=== PATIENT | female | born 1970 | race Caucasian/White ===

== ENCOUNTER 2022-01-15 10:28 | Emergency (ER) | payer BC, SELFPAY ==
[2022-01-15 10:49] VITALS: BP 167/83; BP 210/110; PULSE 100; PULSE 110; TEMP 36.7; O2SAT 100; O2SAT 99; BMI 24.2
--- NOTE | 2022-01-15 11:01 | ECG_ITS ---
Test Reason : Hot flash, nausea Blood Pressure : / mmHG Vent. Rate : 073 BPM Atrial Rate : 073 BPM P-R Int : 142 ms QRS Dur : 076 ms QT Int : 408 ms P-R-T Axes : 073 070 050 degrees QTc Int : 449 ms Normal sinus rhythm with sinus arrhythmia Possible Left atrial enlargement Borderline ECG No previous ECGs available Referred By: Lakhwinder Matson Electronically Signed By:JAVAN GARCIA
--- NOTE | 2022-01-15 11:02 | ED.GENADULT ---
HPI - General Adult General Chief complaint: General Medical Stated complaint: HYPERTENSION Time Seen by Provider: 01/15/22 11:01 Source: patient Limitations: no limitations History of Present Illness HPI narrative: This is a 51-year-old female with history of hypertension who has been off of medicine for her blood pressure for about 4 years but recently had evaluation by her primary care physician and was noted to have elevated blood pressure, was started on lisinopril 5 mg daily for her blood pressure. She took a dose yesterday, along with citalopram, which was newly prescribed. The patient's morning did not take her lisinopril because she felt that her blood pressure was normal. She subsequently went to work and developed episodes of hot flashes, some nausea, did have 1 episode of diarrhea. She has not had symptoms such as hot flashes previously. She denies any vomiting, denies chest pain or shortness of breath. She did have a feeling like she had a warm sensation throughout her body. She notes that her blood pressure does tend to go up and she is anxious and when it was measured at work it was very high around 210 over 90. Related Data Allergies Allergy/AdvReac Type Severity Reaction Status Date / Time No Known Allergies Allergy Verified 01/15/22 10:56 Review of Systems Review of Systems: Yes all other systems are reviewed and are negative Constitutional: Constitutional: Reports as per HPI and Denies fever(s) Eyes: Eyes: Reports as per HPI and Reports no additional eye complaints ENT: Reports system reviewed and no additional complaints, except as documented, Reports as per HPI, Denies nasal congestion, Denies nasal discharge and Denies sore throat Cardiovascular: Cardiovascular: Reports as per HPI, Denies chest pain and Denies dyspnea Respiratory: Respiratory: Reports as per HPI, Denies cough and Denies dyspnea Gastrointestinal: Gastrointestinal: Reports as per HPI, Denies abdominal pain, Reports diarrhea, Reports nausea and Denies vomiting Genitourinary: Genitourinary: Reports as per HPI, Denies hematuria, Denies urinary frequency and Denies dysuria Musculoskeletal: Musculoskeletal: Reports no additional musculoskeletal complaints and Denies numbness Integumentary/Breasts: Skin/Breast: Reports as per HPI and Denies rash Neurologic: Reports as per HPI, Denies focal weakness and Denies numbness Psychiatric: Psychiatric: Reports no additional psychiatric complaints and Reports as per HPI Endocrine: Endocrine: Reports no additional endocrine complaints and Reports as per HPI Hematologic/Lymphatic: Hematologic/Lymphatic: Reports no additional hematologic/lymphatic complaints, Reports as per HPI and Reports other (No peripheral edema) [facility] Past Medical History Medical History (Updated 01/15/22 @ 11:37 by Lakhwinder Matson MD) HTN (hypertension) Hyperthyroidism Social History Social History Advance Directives: No Advance Directives Information Provided: No Physical Exam ED Vital Signs: Vital Signs - 24 hr 01/15/22 10:49 01/15/22 11:56 Temperature 98.1 F Pulse Rate 100 76 Blood Pressure 167/83 H 161/90 H Pulse Oximetry 100 BMI result Body Mass Index 24.2 Const General: no acute distress Orientation/consciousness: patient oriented x3 HENMT Head: Yes normal to inspection General nose exam: Normal external nose present Mouth: moist mucous membranes Throat: Yes posterior oropharynx normal, Yes tonsils normal and Yes uvula midline Eyes Eyelids: Yes eyelids normal Conjunctivae: conjunctivae normal Pupils: Equal, round and reactive pupils present Neck Neck: Yes supple Resp Effort & Inspection: normal respiratory effort Auscultation: clear to auscultation bilaterally Cardio Rate: regular rate Rhythm: regular rhythm Heart sounds: S1 normal heart sound present, S2 normal heart sound present, no gallops, no murmurs and no rubs GI Inspection: No distended Palpation (GI): Soft to palpation and nontender Auscultation: normal bowel sounds Skin General skin exam: other (Warm and dry) Neuro General: patient oriented x3 and CN's II-XI intact bilaterally Cranial nerves: Yes Equal, round and reactive pupils present Extrem General: Yes no pedal edema Psych Affect: normal affect Attitude: cooperative Course Course Course Narrative: Patient took her own lisinopril 5 mg p.o.. Upon re-evaluation about an hour later the patient felt much better. Patient states she has had a prior reaction to a different version of citalopram in the past, believes it was likely the citalopram which set off her symptoms this morning. Recommend the patient stop her citalopram, continued lisinopril 5 mg daily, follow-up with primary care physician. Medical Decision Making ECG Data Attestation: I personally reviewed and interpreted this ECG as follows: Interpretation: Sinus rhythm with a rate of 73. No ST elevation or depression. Normal QRS axis. Borderline left atrial enlargement Discharge Plan Discharge Clinical Impression: Hypertension, Hot flashes Patient Disposition: Home, Self-Care Additional Instructions: Stop the citalopram. Continue taking lisinopril 5 mg daily. Follow up with her primary care physician. Return for any new or worsened symptoms. Interventions: ED Discharge Assessment Last Done: 01/15/22 11:55 Discharge Date/Time: 01/15/22 11:55
[2022-01-15 11:56] VITALS: BP 161/90; PULSE 76
== END 2022-01-15 11:55 | disposition home or self-care (01) ==
PROVIDERS: Emergency Provider Emergency Medicine; PCP Internal Medicine
DX: N95.1 Menopausal and female climacteric states (principal); I10 Essential (primary) hypertension; F41.1 Generalized anxiety disorder; R11.0 Nausea; R19.7 Diarrhea, unspecified; Z79.899 Other long term (current) drug therapy
CPT/HCPCS: 93005; 99283